=== PATIENT | male | born 1955 | race Caucasian/White ===

== ENCOUNTER 2023-08-03 15:27 | Inpatient (IN) | payer OTHER ==
[~2023-08-03] VITALS: Ht 167.6 cm; Wt 61.7 kg
[2023-08-03] VITALS (16 sets, daily range): BP systolic 159–186; BP diastolic 67–124; TEMP 97.7; O2SAT 96–99
[2023-08-03 16:31] LABS: BASOPHILS % (AUTO) 1.2 % (0.0-2.0); EOSINOPHILS % (AUTO) 0.9 % (0.0-6.0); HEMATOCRIT 35 % (39-51); HEMOGLOBIN 11.5 g/dL (13.5-17.5); LYMPHOCYTES # (AUTO) 0.6 K/uL (0.8-4.8); LYMPHOCYTES % (AUTO) 16.9 % (20.0-44.0); MEAN CORPUSCULAR HEMOGLOBIN 32 PG (26.0-33.0); MEAN CORPUSCULAR HGB CONC 33 g/dl (31.0-36.0); MEAN CORPUSCULAR VOLUME 98 fL (80-96); MONOCYTES # (AUTO) 0.4 K/uL (0.1-1.30); MONOCYTES % (AUTO) 11.2 % (2.0-12.0); NEUTROPHILS # (AUTO) 2.7 K/uL (1.8-8.9); NEUTROPHILS % (AUTO) 69.8 % (43.0-81.0); PLATELET COUNT (AUTO) 189 K/uL (150-450); RED BLOOD CELL COUNT(AUTO) 3.59 MIL/uL (4.5-6.0); RED CELL DISTRIBUTION WIDTH 12.7 % (11.5-15.0); WHITE BLOOD COUNT (AUTO) 3.8 K/uL (4.3-11.0)
[2023-08-03] MEDS ORDERED: IV NS 0.9% 250 ML IV ONE (16:31)
[2023-08-03] MEDS ORDERED: IOHEXOL-350 100 ML VIAL IV ONE (16:31)
[2023-08-03 16:52] LABS: PARTIAL THROMBOPLASTIN TIME 29.3 SEC (24.3-34.3); PROTHROMBIN TIME 10.3 SECS (9.2-11.1)
[2023-08-03 16:58] LABS: ALANINE AMINOTRANSFERASE 15 U/L (12-78); ALBUMIN 4.2 g/dL (3.4-5.0); ALKALINE PHOSPHATASE 112 U/L (46-116); ASPARTATE AMINOTRANSFERASE 17 U/L (15-37); BILIRUBIN,DIRECT 0.1 mg/dL (0.0-0.2); BILIRUBIN,TOTAL 0.4 mg/dL (0.2-1.0); CALCIUM, SERUM 8.7 mg/dL (8.5-10.1); CARBON DIOXIDE 39 mmol/L (21-32); CHLORIDE 100 mmol/L (98-107); CREATININE 6.7 mg/dL (0.6-1.3); GLUCOSE 177 mg/dL (74-106); POTASSIUM 4.4 mmol/L (3.5-5.1); SODIUM SERUM 146 mmol/L (136-145); TOTAL PROTEIN, SERUM 8.1 g/dL (6.4-8.2); UREA NITROGEN, BLOOD 60 mg/dL (7-18)
[2023-08-03] MEDS ORDERED: ASPIRIN 81 MG TAB.CHEW PO SCH (19:00)
[2023-08-03] MEDS ORDERED: FURO-144 PO (19:27)
[2023-08-03] MEDS ORDERED: METO25TA4 PO (19:27)
[2023-08-03] MEDS ORDERED: ASPI-1420 PO (19:27)
[2023-08-03] MEDS ORDERED: SEVE800T7 PO (19:27)
[2023-08-03] MEDS ORDERED: LEVE1000 PO (19:27)
[2023-08-03] MEDS ORDERED: ATOR40TA PO (19:27)
[2023-08-03] MEDS ORDERED: AMLO-213 PO (19:27)
[2023-08-03] MEDS ORDERED: HYDR100T27 PO (19:27)
[2023-08-03] MEDS ORDERED: CLOPIDOGREL BISULFATE 300 MG TABLET PO ONE (20:00)
[2023-08-03] MEDS: CLOPIDOGREL BISULFATE 75 MG TABLET PO ONE (20:00)
[2023-08-03] MEDS: ASPIRIN EC 81 MG TABLET.DR PO SCH (20:30)
[2023-08-03] MEDS: METOPROLOL SUCCINATE 25 MG TAB.SR.24H PO SCH (20:30)
[2023-08-03] MEDS: SEVELAMER CARBONATE 800 MG TABLET PO SCH (20:30)
[2023-08-03] MEDS ORDERED: IV NS 0.9% 1,000 ML BAG IV PRN (21:00)
[2023-08-03] MEDS ORDERED: DEXTROSE 50%-WATER 50 ML DISP.SYRIN IV PRN (21:30)
[2023-08-03] MEDS: SIMVASTATIN 20 MG TABLET PO SCH (22:00)
[2023-08-03] MEDS: ATORVASTATIN 40 MG TABLET PO SCH (22:00)
[2023-08-03] MEDS: IV NS 0.9% 1,000 ML IV PRN (22:05)
[2023-08-03] MEDS: IV NS 0.9% 1,000 ML BAG IV PRN ×2 (22:09→22:53)
[2023-08-03] MEDS: HEPARIN SODIUM, PORCINE 5000 UNITS/1 ML VIAL SQ SCH (22:15)
[2023-08-03] MEDS ORDERED: ACETAMINOPHEN 650 MG/SUPP.RECT RC PRN (23:00)
[2023-08-04] VITALS (44 sets, daily range): BP systolic 132–198; BP diastolic 56–133; TEMP 97.9–98.8; O2SAT 86–100
[2023-08-04] MEDS: BLOOD SUGAR DIAGNOSTIC 1 EACH STRIP IN SCH (00:06)
[2023-08-04] MEDS: INSULIN REGULAR, HUMAN 100 UNIT/ML 3 ML VIAL SQ PRN (01:34)
[2023-08-04] MEDS ORDERED: INSULIN REGULAR, HUMAN 100 UNIT/ML 3 ML VIAL ONE (04:22)
[2023-08-04 05:21] LABS: BASOPHILS % (AUTO) 0.7 % (0.0-2.0); EOSINOPHILS % (AUTO) 0.1 % (0.0-6.0); HEMATOCRIT 32 % (39-51); HEMOGLOBIN 10.5 g/dL (13.5-17.5); LYMPHOCYTES # (AUTO) 0.6 K/uL (0.8-4.8); LYMPHOCYTES % (AUTO) 11.9 % (20.0-44.0); MEAN CORPUSCULAR HEMOGLOBIN 33 PG (26.0-33.0); MEAN CORPUSCULAR HGB CONC 33 g/dl (31.0-36.0); MEAN CORPUSCULAR VOLUME 100 fL (80-96); MONOCYTES # (AUTO) 0.3 K/uL (0.1-1.30); NEUTROPHILS # (AUTO) 3.8 K/uL (1.8-8.9); NEUTROPHILS % (AUTO) 80.3 % (43.0-81.0); PLATELET COUNT (AUTO) 167 K/uL (150-450); RED BLOOD CELL COUNT(AUTO) 3.16 MIL/uL (4.5-6.0); RED CELL DISTRIBUTION WIDTH 12.8 % (11.5-15.0); WHITE BLOOD COUNT (AUTO) 4.7 K/uL (4.3-11.0)
[2023-08-04 05:47] LABS: CALCIUM, SERUM 8.7 mg/dL (8.5-10.1); POTASSIUM 4.9 mmol/L (3.5-5.1)
[2023-08-04 05:52] LABS: INR 1.01 (0.91-1.10); PARTIAL THROMBOPLASTIN TIME 34.7 SEC (24.3-34.3); PROTHROMBIN TIME 10.7 SECS (9.2-11.1)
[2023-08-04] MEDS: AMLODIPINE BESYLATE 10 MG TABLET PO SCH (09:00)
[2023-08-04] MEDS: FUROSEMIDE 40 MG TABLET PO SCH (09:00)
[2023-08-04] MEDS: CLOPIDOGREL BISULFATE 75 MG TABLET PO SCH (09:15)
[2023-08-04] MEDS: PANTOPRAZOLE 40 MG TABLET.DR PO SCH (09:23)
[2023-08-05] VITALS (7 sets, daily range): BP systolic 138–190; BP diastolic 64–88; TEMP 97.6–98.9; O2SAT 97–100
[2023-08-05] MEDS: ENALAPRILAT INJ (1.25 MG/ML) 1.25 MG/ML VIAL IV PRN (05:26)
[2023-08-05 07:36] LABS: MAGNESIUM 2.3 mg/dL (1.8-2.4)
[2023-08-05 08:22] LABS: CALCIUM, SERUM 7.4 mg/dL (8.5-10.1); CREATININE 5.8 mg/dL (0.6-1.3); POTASSIUM 4.1 mmol/L (3.5-5.1)
[2023-08-05] MEDS: METOPROLOL SUCCINATE 25 MG TAB.SR.24H PO SCH (08:39)
[2023-08-05] MEDS: NITROGLYCERIN 30 GM TUBE TP SCH (08:49)
[2023-08-05 10:03] LABS: BASOPHILS # (AUTO) 0.1 K/uL (0.0-0.2); BASOPHILS % (AUTO) 1.2 % (0.0-2.0); EOSINOPHILS # (AUTO) 0.2 K/uL (0.0-0.7); EOSINOPHILS % (AUTO) 3.3 % (0.0-6.0); HEMATOCRIT 30 % (39-51); HEMOGLOBIN 10.3 g/dL (13.5-17.5); LYMPHOCYTES % (AUTO) 21.5 % (20.0-44.0); MEAN CORPUSCULAR HEMOGLOBIN 34 PG (26.0-33.0); MEAN CORPUSCULAR HGB CONC 34 g/dl (31.0-36.0); MEAN CORPUSCULAR VOLUME 98 fL (80-96); MONOCYTES # (AUTO) 0.5 K/uL (0.1-1.30); MONOCYTES % (AUTO) 10.2 % (2.0-12.0); NEUTROPHILS # (AUTO) 3.1 K/uL (1.8-8.9); NEUTROPHILS % (AUTO) 63.8 % (43.0-81.0); PLATELET COUNT (AUTO) 155 K/uL (150-450); RED BLOOD CELL COUNT(AUTO) 3.06 MIL/uL (4.5-6.0); RED CELL DISTRIBUTION WIDTH 12.6 % (11.5-15.0); WHITE BLOOD COUNT (AUTO) 4.8 K/uL (4.3-11.0)
[2023-08-05] MEDS: LEVETIRACETAM (250 MG) 250 MG TABLET PO SCH (11:29)
[2023-08-05] MEDS ORDERED: DEXTROSE 50%-WATER 50 ML DISP.SYRIN IV PRN (22:30)
[2023-08-06] VITALS: BP 126/77; TEMP 98.3; O2SAT 96
[2023-08-06 04:00] VITALS: BP 116/86; TEMP 98.1; O2SAT 100
[2023-08-06 06:56] LABS: EOSINOPHILS # (AUTO) 0.2 K/uL (0.0-0.7); EOSINOPHILS % (AUTO) 5.2 % (0.0-6.0); HEMATOCRIT 30 % (39-51); HEMOGLOBIN 10.2 g/dL (13.5-17.5); LYMPHOCYTES % (AUTO) 25.2 % (20.0-44.0); MEAN CORPUSCULAR HEMOGLOBIN 33 PG (26.0-33.0); MEAN CORPUSCULAR HGB CONC 34 g/dl (31.0-36.0); MEAN CORPUSCULAR VOLUME 98 fL (80-96); MONOCYTES # (AUTO) 0.4 K/uL (0.1-1.30); MONOCYTES % (AUTO) 10.6 % (2.0-12.0); NEUTROPHILS # (AUTO) 2.4 K/uL (1.8-8.9); PLATELET COUNT (AUTO) 147 K/uL (150-450); RED BLOOD CELL COUNT(AUTO) 3.08 MIL/uL (4.5-6.0); RED CELL DISTRIBUTION WIDTH 12.5 % (11.5-15.0); WHITE BLOOD COUNT (AUTO) 4.1 K/uL (4.3-11.0)
[2023-08-06 07:06] LABS: CALCIUM, SERUM 7.9 mg/dL (8.5-10.1); CREATININE 7.4 mg/dL (0.6-1.3); MAGNESIUM 2.2 mg/dL (1.8-2.4); PHOSPHORUS 4.6 mg/dL (2.5-4.9); POTASSIUM 4.3 mmol/L (3.5-5.1)
[2023-08-06 07:20] LABS: THYROID STIMULATING HORMONE 0.798 uIU/mL (0.358-3.74)
[2023-08-06] MEDS: BLOOD SUGAR DIAGNOSTIC 1 EACH STRIP IN SCH (07:56)
[2023-08-06 08:00] VITALS: BP 185/70; TEMP 99; O2SAT 96
[2023-08-06] MEDS: METOPROLOL SUCCINATE 50 MG TAB.SR.24H PO SCH (09:00)
[2023-08-06 11:09] LABS: FOLIC ACID 8.9 ng/mL (>3.0)
[2023-08-06 12:00] VITALS: BP 159/79; TEMP 97.5; O2SAT 97
[2023-08-06 16:00] VITALS: BP 153/70; TEMP 97.6; O2SAT 97
[2023-08-06 20:00] VITALS: BP 140/106; TEMP 96.4; O2SAT 98
[2023-08-07 02:47] VITALS: O2SAT 96
[2023-08-07 04:00] VITALS: BP_SYST 192; BP_DIAS 56; BP_DIAS 82; TEMP 97.7; O2SAT 99
[2023-08-07 08:00] VITALS: BP 169/80; TEMP 97.2; O2SAT 97
[2023-08-07 08:10] LABS: BASOPHILS % (AUTO) 1.1 % (0.0-2.0); EOSINOPHILS # (AUTO) 0.2 K/uL (0.0-0.7); EOSINOPHILS % (AUTO) 7.6 % (0.0-6.0); HEMATOCRIT 30 % (39-51); HEMOGLOBIN 10.2 g/dL (13.5-17.5); LYMPHOCYTES # (AUTO) 0.6 K/uL (0.8-4.8); LYMPHOCYTES % (AUTO) 20.4 % (20.0-44.0); MEAN CORPUSCULAR HEMOGLOBIN 33 PG (26.0-33.0); MEAN CORPUSCULAR HGB CONC 34 g/dl (31.0-36.0); MEAN CORPUSCULAR VOLUME 97 fL (80-96); MONOCYTES # (AUTO) 0.3 K/uL (0.1-1.30); MONOCYTES % (AUTO) 10.7 % (2.0-12.0); NEUTROPHILS # (AUTO) 1.9 K/uL (1.8-8.9); NEUTROPHILS % (AUTO) 60.2 % (43.0-81.0); PLATELET COUNT (AUTO) 138 K/uL (150-450); RED CELL DISTRIBUTION WIDTH 12.5 % (11.5-15.0); WHITE BLOOD COUNT (AUTO) 3.1 K/uL (4.3-11.0)
[2023-08-07 09:10] LABS: CALCIUM, SERUM 8.2 mg/dL (8.5-10.1); CREATININE 5.9 mg/dL (0.6-1.3); MAGNESIUM 2.3 mg/dL (1.8-2.4); PHOSPHORUS 4.6 mg/dL (2.5-4.9); POTASSIUM 4.1 mmol/L (3.5-5.1)
[2023-08-07] MEDS: hydrALAZINE HCL 50 MG TABLET PO SCH (11:27)
[2023-08-07 13:12] VITALS: O2SAT 97
[2023-08-07 16:00] VITALS: BP 164/64; TEMP 97.5; O2SAT 96
[2023-08-07] MEDS: INSULIN REGULAR, HUMAN 100 UNIT/ML 3 ML VIAL SQ PRN (17:00)
[2023-08-07 20:00] VITALS: BP 153/63; TEMP 98.4; O2SAT 98
[2023-08-08 04:00] VITALS: BP 153/63; TEMP 98.4; O2SAT 98
[2023-08-08 07:34] LABS: BASOPHILS % (AUTO) 1.1 % (0.0-2.0); EOSINOPHILS # (AUTO) 0.2 K/uL (0.0-0.7); EOSINOPHILS % (AUTO) 7.1 % (0.0-6.0); HEMATOCRIT 26 % (39-51); HEMOGLOBIN 8.9 g/dL (13.5-17.5); LYMPHOCYTES # (AUTO) 0.9 K/uL (0.8-4.8); LYMPHOCYTES % (AUTO) 25.6 % (20.0-44.0); MEAN CORPUSCULAR HEMOGLOBIN 33 PG (26.0-33.0); MEAN CORPUSCULAR HGB CONC 34 g/dl (31.0-36.0); MEAN CORPUSCULAR VOLUME 97 fL (80-96); MONOCYTES # (AUTO) 0.4 K/uL (0.1-1.30); MONOCYTES % (AUTO) 10.3 % (2.0-12.0); NEUTROPHILS # (AUTO) 1.9 K/uL (1.8-8.9); NEUTROPHILS % (AUTO) 55.9 % (43.0-81.0); PLATELET COUNT (AUTO) 129 K/uL (150-450); RED CELL DISTRIBUTION WIDTH 12.3 % (11.5-15.0); WHITE BLOOD COUNT (AUTO) 3.4 K/uL (4.3-11.0)
[2023-08-08 08:00] VITALS: BP 161/57; TEMP 99; O2SAT 97
[2023-08-08 08:03] LABS: CALCIUM, SERUM 7.9 mg/dL (8.5-10.1); CREATININE 7.4 mg/dL (0.6-1.3); POTASSIUM 4.3 mmol/L (3.5-5.1)
[2023-08-08 10:43] LABS: MAGNESIUM 2.6 mg/dL (1.8-2.4); PHOSPHORUS 4.7 mg/dL (2.5-4.9)
[2023-08-08 16:00] VITALS: BP 120/50; TEMP 98.2; O2SAT 95
[2023-08-08 20:00] VITALS: BP 144/57; TEMP 98.2; O2SAT 97
[2023-08-09 04:00] VITALS: BP 141/62; TEMP 99; O2SAT 98
[2023-08-09 06:17] LABS: BASOPHILS % (AUTO) 1.2 % (0.0-2.0); EOSINOPHILS # (AUTO) 0.2 K/uL (0.0-0.7); EOSINOPHILS % (AUTO) 6.8 % (0.0-6.0); HEMATOCRIT 26 % (39-51); HEMOGLOBIN 8.6 g/dL (13.5-17.5); LYMPHOCYTES # (AUTO) 0.6 K/uL (0.8-4.8); LYMPHOCYTES % (AUTO) 19.3 % (20.0-44.0); MEAN CORPUSCULAR HEMOGLOBIN 33 PG (26.0-33.0); MEAN CORPUSCULAR HGB CONC 34 g/dl (31.0-36.0); MEAN CORPUSCULAR VOLUME 98 fL (80-96); MONOCYTES # (AUTO) 0.3 K/uL (0.1-1.30); MONOCYTES % (AUTO) 10.1 % (2.0-12.0); NEUTROPHILS % (AUTO) 62.6 % (43.0-81.0); PLATELET COUNT (AUTO) 134 K/uL (150-450); RED BLOOD CELL COUNT(AUTO) 2.61 MIL/uL (4.5-6.0); RED CELL DISTRIBUTION WIDTH 12.5 % (11.5-15.0); WHITE BLOOD COUNT (AUTO) 3.2 K/uL (4.3-11.0)
[2023-08-09 07:03] LABS: CALCIUM, SERUM 7.5 mg/dL (8.5-10.1); MAGNESIUM 2.4 mg/dL (1.8-2.4); PHOSPHORUS 3.6 mg/dL (2.5-4.9); POTASSIUM 3.6 mmol/L (3.5-5.1)
[2023-08-09 08:00] VITALS: BP 149/54; TEMP 98.1; O2SAT 96
[2023-08-09] MEDS ORDERED: METO50TA7 PO (12:18)
[2023-08-09] MEDS ORDERED: CLOP75TA15 PO (12:18)
[2023-08-09 16:00] VITALS: BP 139/55; TEMP 98.5; O2SAT 97
[2023-08-09 17:05] VITALS: BP 139/55
[2023-08-10 09:10] LABS: HEPATITIS B SURFACE AB Reactive (.)
== END 2023-08-09 17:26 | disposition home health service (06) | DRG 45 ==
LOC: EDBD 15:30 → ER 15:30 → TELE 19:22 → ICU 20:07 → TELE1 08-04 23:45 → MEDSG1 08-06 17:42
PROVIDERS: ADMIT Student in an Organized Health Care Education/Training Program; ATTEND Student in an Organized Health Care Education/Training Program
PROC: 5A1D70Z Performance of Urinary Filtration, Intermittent, Less than 6 Hours Per Day (ICD-10-PCS; principal; 2023-08-04)
DX: I63.531 Cerebral infarction due to unspecified occlusion or stenosis of right posterior cerebral artery (principal); I13.2 Hypertensive heart and chronic kidney disease with heart failure and with stage 5 chronic kidney disease, or end stage renal disease; E87.0 Hyperosmolality and hypernatremia; N18.6 End stage renal disease; E87.1 Hypo-osmolality and hyponatremia; E11.22 Type 2 diabetes mellitus with diabetic chronic kidney disease; D64.9 Anemia, unspecified; D72.819 Decreased white blood cell count, unspecified; E78.5 Hyperlipidemia, unspecified; I65.21 Occlusion and stenosis of right carotid artery; Z99.2 Dependence on renal dialysis; G40.909 Epilepsy, unspecified, not intractable, without status epilepticus; R29.713 NIHSS score 13; I50.9 Heart failure, unspecified; Z86.73 Personal history of transient ischemic attack (TIA), and cerebral infarction without residual deficits; Z79.82 Long term (current) use of aspirin; Z79.899 Other long term (current) drug therapy; M89.8X9 Other specified disorders of bone, unspecified site; N20.0 Calculus of kidney
CPT/HCPCS: 36415; 70450-TC; 70496-TC; 70498-TC; 70551-TC; 71045-TC; 80048-TC; 80061-TC; 80076-TC; 82607-TC; 82962-TC; 83605-TC; 83735-TC; 83921; 84100-TC; 84443-TC; 84484-TC; 85025-TC; 85730-TC; 86706; 86850-TC; 87040-TC; 87340; 90935-TC; 92507-TC; 92521; 92526; 92611-TC; 93307-TC; 94799-TC; 97110-TC; 97116-TC; 97530-TC; 97535-TC; A4223; G0378; J1644; J1815; J3490; J7030; J7050; Q9967